=== PATIENT | male | born 1980 | race Caucasian/White ===

== ENCOUNTER → 2016-04-01 | Outpatient (CLI) | payer OTHER ==
--- NOTE | 2016-04-01 09:43 | REP ---
SACROILIAC JOINTS: Four views of the sacroiliac joints are performed. The bones of the pelvis are included on the images. I see no radiographic evidence of acute fracture or dislocation. Sacroiliac joints are symmetrical and unremarkable in appearance. No significant arthritic changes are visualized. Evaluation of the sacrum and coccyx is somewhat limited due to overlying bowel gas and fecal material. IMPRESSION: No evidence of acute fracture or dislocation. If there is continued clinical concern for an occult fracture of sacrum and coccyx, MRI would be recommended. Signed by Andrés Medina MD 04/01/2016 09:52 A
== END ==
LOC: M LRY 08:30
PROVIDERS: ATTEND Family Medicine
DX: M53.3 Sacrococcygeal disorders, not elsewhere classified (principal)

== ENCOUNTER 2016-11-15 07:11 | Emergency (ER) | payer OTHER, SELFPAY ==
[~2016-11-15] VITALS: Ht 175.3 cm; Wt 90.9 kg
[2016-11-15 07:19] VITALS: BP 128/90
[2016-11-15] MEDS ORDERED: TETRACAINE 0.5% OPHTH SOLN 4ML OS ONE (07:45)
[2016-11-15] MEDS ORDERED: FLUORESCEIN OPHTH 1 MG STRIP OS ONE (07:45)
[2016-11-15] MEDS ORDERED: ERYTHROMYCIN OPHTH OINT OS ONE (08:00)
[2016-11-15] MEDS ORDERED: NORCO, ANEXSIA 5/325MG TABLET (HYDROcodone/ACETAMINOPHEN) PO ONE (08:00)
[2016-11-15] MEDS ORDERED: VIGA0.02 OS (08:23)
[2016-11-15] MEDS ORDERED: NORCOTAB PO (08:23)
== END 2016-11-15 08:37 | disposition home or self-care (01) ==
LOC: M ED 07:11
DX: T15.02XA Foreign body in cornea, left eye, initial encounter (principal); X58.XXXA Exposure to other specified factors, initial encounter; Y92.89 Other specified places as the place of occurrence of the external cause; Y93.89 Activity, other specified; Y99.8 Other external cause status; F17.210 Nicotine dependence, cigarettes, uncomplicated; Z88.0 Allergy status to penicillin; Z88.5 Allergy status to narcotic agent

== ENCOUNTER 2017-07-16 06:45 | Emergency (ER) | payer SELFPAY ==
[2017-07-16] MEDS: NORCO, ANEXSIA 5/325MG TABLET (HYDROcodone/ACETAMINOPHEN) PO (08:11)
== END 2017-07-16 08:12 | disposition home or self-care (01) ==
LOC: M ED 06:45
DX: T15.02XA Foreign body in cornea, left eye, initial encounter (principal); X58.XXXA Exposure to other specified factors, initial encounter; Y92.89 Other specified places as the place of occurrence of the external cause; Z88.5 Allergy status to narcotic agent; Z88.0 Allergy status to penicillin
CPT/HCPCS: 99283

== ENCOUNTER 2018-04-04 17:59 | Emergency (ER) | payer SELFPAY ==
[~2018-04-04] VITALS: Ht 175.3 cm; Wt 81.8 kg
[~2018-04-04 17:59] MED LIST: BACIOIN23 OP; NORCOTAB PO; VIGA0.02 OS
[2018-04-04] MEDS ORDERED: IBUPROFEN 600 MG TAB PO ONE (19:00)
[2018-04-04] MEDS ORDERED: METOCLOPRAMIDE INJ 10MG/2ML VIAL (J2765) IV ONE (19:15)
[2018-04-04] MEDS ORDERED: KETOROLAC 30 MG/ML VIAL (J1885) IV ONE (19:15)
[2018-04-04 19:28] LABS: HEMATOCRIT 41.8 % (42.0-52.0); HEMOGLOBIN 13.6 g/dl (13.5-17.5); MEAN CORPUSCULAR HEMOGLOBIN 26.8 pg (27.0-33.0); MEAN CORPUSCULAR HGB CONC 32.5 g/dl (32.0-36.5); MEAN CORPUSCULAR VOLUME 82.4 fl (80.0-96.0); PLATELET COUNT, AUTOMATED 198 10^3/uL (150-450); RED BLOOD COUNT 5.07 10^6/uL (4.30-6.10); WHITE BLOOD COUNT 5.9 10^3/uL (4.0-10.0)
[2018-04-04 19:48] LABS: INFLUENZA A AMPLIFICATION POSITIVE (NEGATIVE); INFLUENZA B AMPLIFICATION NEGATIVE (NEGATIVE)
[2018-04-04 19:59] LABS: BLOOD UREA NITROGEN 10 MG/DL (7-18); CALCIUM LEVEL 8.6 MG/DL (8.5-10.1); CARBON DIOXIDE LEVEL 29 MEQ/L (21-32); CHLORIDE LEVEL 101 MEQ/L (98-107); CREATININE FOR GFR 1.32 MG/DL (0.70-1.30); GLOMERULAR FILTRATION RATE > 60.0 (>60); GLUCOSE, FASTING 93 MG/DL (70-100); POTASSIUM SERUM 4.3 MEQ/L (3.5-5.1); SODIUM LEVEL 135 MEQ/L (136-145)
[2018-04-04] MEDS ORDERED: OSEL75CA PO (20:04)
--- NOTE | 2018-04-04 20:09 | REPVR ---
EXAM: CT Head Without Contrast EXAM DATE/TIME: 04/04/2018 7:31 PM CLINICAL HISTORY: 37 years old, male; Pain; Headache; Headache not specified; Additional info: [place] TECHNIQUE: Axial computed tomography images of the head/brain without contrast. All CT scans at this facility use at least one of these dose optimization techniques: automated exposure control; mA and/or kV adjustment per patient size (includes targeted exams where dose is matched to clinical indication); or iterative reconstruction. Technologist notes: Facility exam id and description: [facility] CT head without contrast COMPARISON: CT Head without contrast 12/29/2015 5:32 PM FINDINGS: Brain: Normal. No hemorrhage. No significant white matter disease. No edema. Ventricles: Normal. No ventriculomegaly. Bones/joints: Status post right parietal craniotomy. Sinuses: Bilateral sphenoid, left greater than right and mild bilateral ethmoid sinusitis. Mastoid air cells: Visualized mastoid air cells are unremarkable. No mastoid effusion. Soft tissues: Unremarkable. IMPRESSION: 1. Bilateral sphenoid, left greater than right and mild bilateral ethmoid sinusitis. 2. Status post right parietal craniotomy. 3. No significant interval change. Electronically signed by: Dangelo Koo On 04/04/2018 20:09:33 PM
[2018-04-04 20:15] VITALS: BP 111/54
[2018-04-04] MEDS ORDERED: OSELTAMIVIR PHOSPHATE 75 MG CAP (TAMIFLU) PO ONE (20:15)
[2018-04-04] MEDS ORDERED: ACETAMINOPHEN 325 MG TAB PO ONE (20:30)
== END 2018-04-04 20:49 | disposition home or self-care (01) ==
LOC: M ED 17:59
DX: J09.X2 Influenza due to identified novel influenza A virus with other respiratory manifestations (principal); F17.200 Nicotine dependence, unspecified, uncomplicated; Z88.5 Allergy status to narcotic agent; Z88.0 Allergy status to penicillin; Z87.820 Personal history of traumatic brain injury
CPT/HCPCS: 70450; 80048; 85027; 87502; 96374; 96375; 99283; J1885; J2765

== ENCOUNTER 2018-09-25 16:04 | Emergency (ER) | payer SELFPAY ==
[~2018-09-25] VITALS: Ht 175.3 cm; Wt 84.6 kg
[~2018-09-25 16:04] MED LIST changes: +HYDR-3715 PO; -NORCOTAB PO; +OSEL75CA PO
[2018-09-25 16:05] VITALS: BP 134/66
[2018-09-25] MEDS ORDERED: ACET160S3 PO (16:13)
[2018-09-25] MEDS ORDERED: CEPH500C (16:13)
== END 2018-09-25 19:54 | disposition left against medical advice (07) ==
LOC: M ED 16:04
DX: G89.18 Other acute postprocedural pain (principal); Z53.21 Procedure and treatment not carried out due to patient leaving prior to being seen by health care provider

== ENCOUNTER 2019-04-01 02:07 | Emergency (ER) | payer OTHER, SELFPAY ==
[~2019-04-01] VITALS: Ht 172.7 cm; Wt 85.0 kg
[~2019-04-01 02:07] MED LIST changes: +ACET160S3 PO; +CEPH500C
--- NOTE | 2019-04-01 02:35 | REPVR ---
PROCEDURE INFORMATION: Exam: CT Head Without Contrast Exam date and time: 04/01/2019 2:16 AM Age: 38 years old Clinical indication: Pain; Headache; Additional info: Severe head pain TECHNIQUE: Imaging protocol: Computed tomography of the head without contrast. Radiation optimization: All CT scans at this facility use at least one of these dose optimization techniques: automated exposure control; mA and/or kV adjustment per patient size (includes targeted exams where dose is matched to clinical indication); or iterative reconstruction. Other technique: STROKE PROTOCOL was implemented. COMPARISON: CT Head without contrast 2018-04-04 19:20 FINDINGS: Brain: Right lateral frontal lobe subtle cortical encephalomalacia. No midline shift, mass, fluid collection, or evidence of acute hemorrhage. Ventricles: Normal. No ventriculomegaly. Bones/joints: Right frontal parietal cranioplasty. Sinuses: Visualized sinuses are unremarkable. No fluid levels. Mastoid air cells: Visualized mastoid air cells are well aerated. Soft tissues: Unremarkable. IMPRESSION: 1. No acute intracranial abnormality. 2. [place] Stroke Program Early CT Score (ASPECTS) = 10. Electronically signed by: Bong Cervantes On 04/01/2019 02:35:16 AM
[2019-04-01] MEDS ORDERED: diphenhydrAMINE INJ 50MG/ML VIAL (J1200) IV ONE (03:00)
[2019-04-01] MEDS ORDERED: KETOROLAC 30 MG/ML VIAL (J1885) IV ONE (03:00)
[2019-04-01] MEDS ORDERED: NS 1,000 ML IV ONE (03:00)
[2019-04-01] MEDS ORDERED: METOCLOPRAMIDE INJ 10MG/2ML VIAL (J2765) IV ONE (03:00)
[2019-04-01 05:15] VITALS: BP 129/64
== END 2019-04-01 05:46 | disposition home or self-care (01) ==
LOC: M ED 02:07
DX: G43.909 Migraine, unspecified, not intractable, without status migrainosus (principal); Z88.0 Allergy status to penicillin; F17.200 Nicotine dependence, unspecified, uncomplicated
CPT/HCPCS: 70450; 96361; 96374; 96375; 99284; J1200; J1885; J2765